=== PATIENT | male | born 1955 | race Caucasian/White ===

== ENCOUNTER 2021-09-27 19:37 | Emergency (ER) | payer OTHER ==
[~2021-09-27] VITALS: Ht 182.9 cm; Wt 77.1 kg
--- NOTE | 2021-09-27 20:22 | NUR ---
Dr Mendoza at bedside, MSE in progress.
[2021-09-27] MEDS ORDERED: LORA-75 PO (20:26)
[2021-09-27] MEDS ORDERED: LORATADINE 10 MG TABLET ONE (20:26)
[2021-09-27] MEDS ORDERED: LORATADINE 10 MG TABLET PO SCH (20:30)
--- NOTE | 2021-09-27 20:32 | NUR ---
Patient discharged to home in stable condition. Written and verbal after care instructions given. Patient verbalizes understanding of instructions. Stressed follow up or return to ER for worsening s/s.
[2021-09-27 20:33] VITALS: BP 108/72
== END 2021-09-27 20:34 | disposition home or self-care (01) ==
LOC: ER 19:37 → EDBD 19:37 → ER 20:34
DX: S70.362A Insect bite (nonvenomous), left thigh, initial encounter (principal); S50.861A Insect bite (nonvenomous) of right forearm, initial encounter; W57.XXXA Bitten or stung by nonvenomous insect and other nonvenomous arthropods, initial encounter; Y92.89 Other specified places as the place of occurrence of the external cause
CPT/HCPCS: A4663